=== PATIENT | male | born 1985 | race Caucasian/White ===

== ENCOUNTER 2017-02-03 20:09 | Emergency (ER) | payer SELFPAY | END 2017-02-03 23:19 | disposition home or self-care (01) | LOC: D.ER 20:09 | DX: M10.041 Idiopathic gout, right hand (principal) ==

== ENCOUNTER 2017-04-16 17:06 | Emergency (ER) | payer SELFPAY | END 2017-04-16 19:42 | disposition home or self-care (01) | LOC: D.ER 17:06 | DX: M10.9 Gout, unspecified (principal); M79.642 Pain in left hand; F17.200 Nicotine dependence, unspecified, uncomplicated ==

== ENCOUNTER 2017-06-22 14:35 | Emergency (ER) | payer SELFPAY | END 2017-06-22 16:10 | disposition home or self-care (01) | LOC: D.ER 14:35 | DX: M54.6 Pain in thoracic spine (principal); F17.200 Nicotine dependence, unspecified, uncomplicated ==

== ENCOUNTER 2017-07-01 18:49 | Emergency (ER) | payer SELFPAY | END 2017-07-01 22:26 | disposition home or self-care (01) | LOC: D.ER 18:49 | DX: S61.211A Laceration without foreign body of left index finger without damage to nail, initial encounter (principal); W29.8XXA Contact with other powered hand tools and household machinery, initial encounter; Y93.89 Activity, other specified; Y92.029 Unspecified place in mobile home as the place of occurrence of the external cause; F17.200 Nicotine dependence, unspecified, uncomplicated ==

== ENCOUNTER 2019-03-02 19:06 | Emergency (ER) | payer MEDICAID ==
[~2019-03-02] VITALS: Ht 193 cm; Wt 115.0 kg
[2019-03-02 19:27] VITALS: BP 160/83; Ht 193 cm; Wt 115.0 kg
== END 2019-03-02 21:37 | disposition home or self-care (01) ==
LOC: D.ER 19:06
DX: S30.860A Insect bite (nonvenomous) of lower back and pelvis, initial encounter (principal)